=== PATIENT | male | born 1955 | race Caucasian/White ===

== ENCOUNTER 2018-09-16 11:52 | Inpatient (IN) | payer BC ==
[~2018-09-16] VITALS: Ht 175.3 cm; Wt 90.7 kg
--- NOTE | 2018-09-16 12:24 | NUR ---
PREADMISSION Pt 63 y/o male received in intake office. Pt alert and oriented to name,place, and time.[place]. Skin warm and dry to touch. Respirations even and unlabored. Pt is not intoxicated. HM=162/79 P=96 R=16 O2=99%@ra T=98.3. Pt states is here for heroin SQ 2gm /days x 4 months and has been using since the age of [age] years old. States his last use was 2gm on 09/16/18 @0300. Pt denies any sz history. Pt is clear to be admitted onto unit. Explained unit rules to pt with acknowledgement.
[2018-09-16 12:44] VITALS: BP 136/79
--- NOTE | 2018-09-16 13:30 | NUR ---
ADMISSION Patient arrived on the unit at 1242, 63 year old male from [facility], admitted to [facility] with admitting Dx: Opiate Withdrawal. Patient appears disheveled and unkempt, appears older than stated age. Patient has worried and sad facial expression. Noted with flat affect and depressed mood. Patients vital signs: BP: 136/79 HR: 96 R: 16 T: 98.4 Pulse OX: 99% Room air. NKA. Patient arrived on the unit at 1242, body assessment completed. Body search conducted by male MASONRY INSPECTOR completed. Oriented to unit and to room, education regarding call light use was provided. PCP: Dr. Montana in [facility] located on [address] [place] [address]. Patient noted with mild withdrawal symptoms, presenting with: nausea and anxiety. Admitting COW score of: 4. SUBSTANCE USE HISTORY: Heroin, injected subcutaneously 2 grams daily x 2 months, (prior to that reports using about two to three times a week patient unable to recall for how long.) Patient reports began using heroin at the age of [age] years old. Last use: 09/16/2018 at 0300 approximately 0.5grams. Longest period of sobriety: 3 years, from: 5171-5177. Patient reports typical withdrawal symptoms include: " I get pretty sick, nausea, bone and joints pain, restless, stomach cramps, sweats, and a little shaky" Patient also reports a history of alcohol abuse, but has not consumed any alcohol in 13 years. Patient denies any history of seizures, overdose, withdrawal induced delirium/cardiac complications. PAST MEDICAL HISTORY -Hypertension diagnosed in 2016 -Pre diabetes diagnosed in 2017 -Hepatitis C in 2012 and was treated two years ago for it. -Liver Cancer 2016 Patient did not bring any home medications with him, reports taking unknown amount of: Propranolol, Protonix and Lactulose. Dr. Randle was made aware. Will clarify with patient regarding amounts. In regards to past medical history, patient also verbalized, They found a small spot of cancer on my liver, approximately two years ago, the doctor went in, through my groin area, and applied chemotherapy medication to it and removed it. I go every three months for an MRI, 6 months after that procedure they found another small spot of cancer in the liver, and the doctor did the same procedure, but this time during the procedure the doctor discovered that I had a blood clot in one of my arteries he treated that as well, after all those procedures and the recovery from the procedures I began using and abusing heroin Patient denies any history of SI/SA, denies any involuntary psychiatric hospitalizations. TREATMENT HISTORY: 1. "[facility] [place] its been a few years since I was there." 2. "[facility] in [place] x2 a long time a go, maybe six years ago" Patient verbalized, "After detox I plan to return to my prior living arrangements and attend an outpatient treatment program " verbalized his son is his support system, My support system is my son, Bill he is always there anytime I need something MOTIVATION In regards to usage history , reports I dont know why I began using heroin, my friends offered it to me and wanted me to try it, so I did Patient reports he uses now: to deal with the pain I guess, In the beginning it was hard at times to stop using but I was able to, but as time went by it got harder and harder to stop using everyday Patient verbalized, I decided to get sober today, because I am tired of dealing with this lifestyle, its just not working for me anymore Patient states, When I try to stop on my own, its really hard, I get really sick and I end up using to not be sick and thats the hard part, I also get really strong cravings when I use it I crave it, and when I stop I get really sick so its a cycle that does nott stop Patient reports barriers for getting/staying sober include the following: I have a lot of pressure on me from work and home and issues that I need to take care of and get done, a lot of stuff on my plate that its difficult to stop using, because that is how I feel better Reports his support system, is his oldest son. Patient reports consequences from using include: Using drugs has affected my close friendships, and my children because my kids feel like Im not there and they feel neglected by me because of my drug use, its also affected my health especially my liver because in the past I was a heavy drinker Reports he has not drank any alcohol in 13 years. Patient reports he is unhappy with himself because of: I have to go through this because I put myself in this situation by using, I wish I wouldt have started using again, because when I was clean it was a good feeling to be clean and sober Patient plans on: " Im seeking help and I realize that there is issues I have to deal with and I plan on attending counseling to learn how to cope with the issues I have. I plan on taking it one day at a time and do what I have to do" Patient was seen and examined by Dr. Randle. Will continue to monitor. Safety measures are in place. Call light with in reach.
[2018-09-16] MEDS ORDERED: LACTULOSE 20 G/30 ML LIQUID UDC PO PRN (14:30)
[2018-09-16] MEDS ORDERED: MAG HYDROX/AL HYDROX/SIMETH 30 ML LIQUID UDC PO PRN (14:30)
[2018-09-16] MEDS ORDERED: IBUPROFEN 600 MG TABLET PO PRN (14:30)
[2018-09-16] MEDS ORDERED: MAGNESIUM HYDROXIDE 30 ML LIQUID UDC PO PRN (14:30)
[2018-09-16] MEDS ORDERED: LORAZEPAM 1 MG TABLET PO PRN (14:30)
[2018-09-16] MEDS ORDERED: LOPERAMIDE HCL 2 MG CAPSULE PO PRN ×2 (14:30)
--- NOTE | 2018-09-16 15:00 | NUR ---
UDS + CANNABINOIDS Patient verbalized he does not use marijuana, and does not know why his UDS is positive for Marijuana. noticed.
[2018-09-16 15:17] LABS: *AMPHETAMINE, URINE NEGATIVE (NEGATIVE); *BARBITURATE, URINE NEGATIVE (NEGATIVE); *CANNABINOID, URINE POSITIVE (NEGATIVE); *COCCAINE, URINE NEGATIVE (NEGATIVE); *OPIATE, URINE POSITIVE (NEGATIVE); *PHENCYCLIDINE SCREEN,URINE NEGATIVE (NEGATIVE)
[2018-09-16 15:25] LABS: BASOPHILS % (AUTO) 0.8 % (0.0-2.0); EOSINOPHILS # (AUTO) 0.1 K/uL (0.0-0.7); EOSINOPHILS % (AUTO) 3.9 % (0.0-7.0); HEMATOCRIT 33.1 % (36.7-47.1); HEMOGLOBIN 11.1 g/dL (12.5-16.3); LYMPHOCYTES # (AUTO) 0.8 K/uL (20.0-40.0); MEAN CORPUSCULAR HEMOGLOBIN 28.2 uug (23.8-33.4); MEAN CORPUSCULAR HGB CONC 34 g/dL (32.5-36.3); MONOCYTES # (AUTO) 0.3 K/uL (2.0-10.0); MONOCYTES % (AUTO) 11.4 % (0.0-11.0); NEUTROPHILS # (AUTO) 1.4 K/uL (1.8-8.9); NEUTROPHILS % (AUTO) 53.9 % (38.5-71.5); RED BLOOD CELL COUNT(AUTO) 3.94 MIL/uL (4.06-5.63); WHITE BLOOD COUNT (AUTO) 2.7 K/uL (3.6-10.2)
[2018-09-16 15:28] LABS: ETHANOL < 3 MG/DL (0-0)
[2018-09-16 15:31] LABS: ALANINE AMINOTRANSFERASE 23 U/L (16-63); ALKALINE PHOSPHATASE 74 U/L (50-136); ASPARTATE AMINOTRANSFERASE 23 U/L (15-37); BILIRUBIN,TOTAL 0.6 mg/dL (0.2-1.0); CARBON DIOXIDE 26 mmol/L (21-32); CHLORIDE 102 mmol/L (98-107); GLUCOSE 211 mg/dL (74-106); MAGNESIUM 1.5 mg/dL (1.8-2.4); POTASSIUM 4.2 mmol/L (3.5-5.1); TOTAL PROTEIN, SERUM 6.9 g/dL (6.4-8.2); UREA NITROGEN, BLOOD 16 mg/dL (7-18)
[2018-09-16 15:42] LABS: THYROID STIMULATING HORMONE 1.605 mIU/mL (0.358-3.740)
[2018-09-16 15:44] LABS: PLATELET COUNT (AUTO) 37 K/uL (152-348)
[2018-09-16 15:50] LABS: BAND % (MANUAL) 2 % (0-10); EOSINOPHILS % (MANUAL) 3 % (0-8); LYMPHOCYTES % (MANUAL) 28 % (20-40); MONOCYTES % (MANUAL) 10 % (2-10); NEUTROPHILS % (MANUAL) 57 % (42-75)
[2018-09-16] MEDS: NICOTINE 21 MG/24HR PATCH TD SCH (16:34)
[2018-09-16 17:16] VITALS: BP 148/81
[2018-09-16] MEDS ORDERED: MAGNESIUM OXIDE 400 MG TABLET PO ONE (18:15)
--- NOTE | 2018-09-16 19:06 | NUR ---
END OF SHIFT Patient continues under close observation patient completed Valium taper as ordered, and is scheduled to be discharged tomorrow morning. Patient has a worried/anxious facial expression. Noted with depressed/anxious mood, encouraged utilization of non pharmacological interventions. Patient presented with difficulty concentrating, emotional volatility, generalized discomfort, increased emotional amplitude, increase anxiety, and agitation, with last CIWA score of: 8. Patient continues under close observation. Received no PRN medications during shift. Encouraged to attend group therapies/sessions to learn new coping skills to prevent relapse. Denies SI/HI. Safety measures are in place. Call light kept with in reach, will continue to monitor closely. Patient endorsed to night auditor nurse, all pertinent information was discussed. Addendum: 09/16/18 at 1909 by JERRY ROSAS LVN INCORRECT NOTE, DISREGARD, WRONG PATIENT.
--- NOTE | 2018-09-16 19:07 | NUR ---
END OF SHIFT Patient admitted today during shift, with admitting Dx: opiate withdrawal. Patient continues under close observation, last COW score of: 4. Patients magnesium was replaced during shift as ordered. MD aware of patients platelet count results of 37. No s/sx of unusual bleeding were noted, educated regarding all safety precautions with good verbal understanding. Patient is scheduled to begin a 5 day Subutex taper tomorrow morning. Patient endorsed to statistical machine servicer nurse, all pertinent information was discussed.
--- NOTE | 2018-09-16 19:08 | NUR ---
Start of shift note Received report from day shift nurse. Pt is a 63 yo male, A+ox4, presenting to [facility] for medically supervised Opiate withdrawal. Pt noted with fatigue, agitation,and anxiety. Pt has HX of HTN, Hepatitis C, and Liver cancer which will be monitored during shift. Pt is on PRN medications at this time, tolerated well. Respirations even and unlabored. Will continue to monitor.
[2018-09-16 20:10] VITALS: BP 145/80
--- NOTE | 2018-09-16 20:10 | NUR ---
COWS Assessment COWS: 9. Pt noted with pulse 74, chills, restlessness, severe diffuse discomfort, nausea, fine tremors, yawning, and anxiety. Respirations even and unlabored. Will continue to monitor.
[2018-09-16] MEDS: METHOCARBAMOL 750 MG TABLET PO PRN (21:30)
[2018-09-16] MEDS: ONDANSETRON ODT 4 MG TAB.RAPDIS SL PRN (22:59)
--- NOTE | 2018-09-16 22:59 | NUR ---
PRN Zofran Pt c/o nausea and requested for PRN Zofran. Medication given and tolerated well. Will reassess within 1 HR. Will continue to monitor.
--- NOTE | 2018-09-16 23:50 | NUR ---
PRN Zofran Reassessment Medication ineffective. Pt states "give me a little more time and maybe i might feel better". No s/s of ASE noted at this time. Respirations even and unlabored. Will continue to monitor.
[2018-09-17] VITALS (8 sets, daily range): BP systolic 131–184; BP diastolic 68–95
--- NOTE | 2018-09-17 00:50 | NUR ---
COWS Assessment COWS: 13. Pt noted with pulse 95, restlessness, chills, severe diffuse discomfort, n/v, fine tremors, yawning, and anxiety. Respirations even and unlabored. Will continue to monitor.
[2018-09-17] MEDS: ONDANSETRON 4 MG/2 ML VIAL IM PRN ×4 (00:53→23:44)
--- NOTE | 2018-09-17 00:53 | NUR ---
PRN Zofran IM PT continues with n/v. PRN Zofran IM given and tolerated well. Will reassess within 1 HR. Will continue to monitor.
--- NOTE | 2018-09-17 01:52 | NUR ---
PRN Zofran IM Reassessment Medication ineffective. Pt continues with n/v. No s/s of ASE noted at this time. Respirations even and unlabored. Will continue to monitor.
[2018-09-17] MEDS: BUPRENORPHINE HCL 2 MG TAB.SUBL SL PRN ×2 (02:13→06:45)
--- NOTE | 2018-09-17 02:13 | NUR ---
COWS Assessment and PRN Subutex COWS: 14. Pt noted with pulse 92, chills, restlessness, severe diffuse discomfort, n/v, fine tremors, yawning, and anxiety. PRN Subutex given and tolerated well. Will reassess within 1 HR. Will continue to monitor.
--- NOTE | 2018-09-17 03:10 | NUR ---
COWS Assessment and PRN Reassessment COWS: 10. Pt noted with pulse 89, restlessness, sever diffuse discomfort, chills, n/v, fine tremors, anxiety, and yawning. PRN Subutex effective. No s/s of ASE noted at this time. Respirations even and unlabored. Will continue to monitor.
--- NOTE | 2018-09-17 06:45 | NUR ---
COWS Assessment and PRN Subutex COWS: 14. Pt noted with pulse 91, runny nose, chills sweat , restlessness, sever diffuse discomfort, fine tremors, yawning, and anxiety. PRN Subutex given and tolerated well. Respirations even and unlabored. Will continue to monitor.
--- NOTE | 2018-09-17 07:00 | NUR ---
End of shift note Pt was continuously noted with n/v, anxiety, agitation, and restlessness. Pt remained in room for entire shift. Pt remained cooperative and compliant with all aspects of treatment. Pt was given PRN Zofran @2259, PRN Zofran IM @0053, PRN Subutex @0213 and @0640. Pt is to start 5 day Subutex taper today. Pt slept for a total of 5 HRS. Last COWS: 14 @0640. Respirations even and unlabored. Will endorse to day shift nurse.
--- NOTE | 2018-09-17 07:22 | NUR ---
BEGINNING OF SHIFT Patient endorsement report received from overnight associate nurse, all pertinent information was discussed, patient admitted yesterday during day shift, with admitting dx: opiate withdrawal. Patient is scheduled to begin a 5 day subutex taper this morning. As per overnight associate patient received PRN: Subutex 4mg x2, zofran PO x1, and zofran Im x1. Subutex administered at 0640, effective, Decrease in anxiety/irritability, current COW score of: 13 at 0715. patient received in bed awake, alert and oriented x4, educated regarding plan of care for the day and medication regimen with good verbal understanding. Per overnight associate patient with last COW score of: 14, and slept for 5 hours. Will continue to monitor closely, safety measures are in place.
--- NOTE | 2018-09-17 08:45 | NUR ---
PRN ZOFRAN Patient noted vomiting x2, and very nauseous, noted dry heaving, provided with non pharmacological interventions with no relief, administered Zofran IM inj as ordered, will monitor effectiveness of medication.
[2018-09-17] MEDS: METHOCARBAMOL 750 MG TABLET PO PRN ×2 (08:53→20:43)
[2018-09-17] MEDS: HYDROXYZINE PAMOATE 25 MG CAPSULE PO PRN ×2 (08:53→20:43)
[2018-09-17] MEDS: NICOTINE 21 MG/24HR PATCH TD SCH (08:53)
[2018-09-17] MEDS: BUPRENORPHINE HCL 2 MG TAB.SUBL SL SCH ×4 (08:53→20:43)
[2018-09-17] MEDS: DICYCLOMINE HCL 20 MG TABLET PO PRN (08:53)
--- NOTE | 2018-09-17 08:53 | NUR ---
PRN BENTYL/ROBAXIN/VISTARIL; COW ASSESSMENT Patient in bed awake alert and oriented x4, presenting with the following s/sx of withrawal: flushed face, clammy skin, difficulty sitting still, enlarged pupils, arthalgias, myaliga, watery eyes, nasal congestion, dry heaving, nausea, muscle spams, vomiting, tremors that can be felt, anxiety, agitation, gooseflesh,abdominal cramps, emotional volatility, and generalized discomfort with current COW score of: 21. Patient administered Bentyl for abdominal cramps, Robaxin for muscle spams/myalgia, and Vistaril for increase anxiety/agitation all as ordered, will monitor effectiveness of medication. Patient also began first dose of Subutex taper this morning, will continue to monitor, continues under close observation.
[2018-09-17] MEDS ORDERED: 5 DAY TAPER BUPRENORPHINE -SERENITY PROTOCOL SL PRN (09:00)
[2018-09-17] MEDS ORDERED: TUBERCULIN,PURIF.PROT.DERIV. 5 TU/0.1 ML TEST ID ONE (09:00)
--- NOTE | 2018-09-17 09:15 | NUR ---
TENA REASSESSMENT Medication effective, patient verbalized " i feel better and less nauseous, will continue to monitor"
[2018-09-17 09:46] LABS: EOSINOPHILS % (AUTO) 0.1 % (0.0-7.0); HEMOGLOBIN 12.8 g/dL (12.5-16.3); LYMPHOCYTES # (AUTO) 0.4 K/uL (20.0-40.0); MONOCYTES # (AUTO) 0.1 K/uL (2.0-10.0); MONOCYTES % (AUTO) 2.7 % (0.0-11.0)
[2018-09-17 09:48] LABS: BASOPHILS % (AUTO) 0.4 % (0.0-2.0); LYMPHOCYTES % (AUTO) 8.7 % (20.5-51.5); MEAN CORPUSCULAR HEMOGLOBIN 27.7 uug (23.8-33.4); MEAN CORPUSCULAR HGB CONC 34 g/dL (32.5-36.3); MEAN CORPUSCULAR VOLUME 81.9 fL (73.0-96.2); NEUTROPHILS # (AUTO) 4.2 K/uL (1.8-8.9); NEUTROPHILS % (AUTO) 88.1 % (38.5-71.5); RED BLOOD CELL COUNT(AUTO) 4.64 MIL/uL (4.06-5.63); WHITE BLOOD COUNT (AUTO) 4.8 K/uL (3.6-10.2)
--- NOTE | 2018-09-17 09:53 | NUR ---
BENTYL/ROBAXIN/VISTARIL REASSESSMENT Patient reports decrease in abdominal cramps, reports feeling less anxious, and decrease in myalgia, current pain level 4/10, all medications were effective, will continue to monitor.
[2018-09-17 10:00] LABS: BILIRUBIN,TOTAL 1.3 mg/dL (0.2-1.0); CREATININE 0.9 mg/dL (0.6-1.3); MAGNESIUM 1.5 mg/dL (1.8-2.4); TOTAL PROTEIN, SERUM 7.9 g/dL (6.4-8.2)
[2018-09-17 10:25] LABS: PLATELET COUNT (AUTO) 46 K/uL (152-348)
--- NOTE | 2018-09-17 10:27 | NUR ---
JOAQUIN Wheeler from lab called plt=46. aware.
[2018-09-17] MEDS: CLONIDINE HCL 0.1 MG TABLET PO PRN ×2 (10:45→16:52)
--- NOTE | 2018-09-17 10:45 | NUR ---
PRN CLONIDINE bp: 184/95 hr: 72. Patient denies chest pain/dizziness. Administered Clonidine as ordered for elevated blood pressure, will monitor effectiveness.
[2018-09-17 11:04] LABS: LYMPHOCYTES % (MANUAL) 9 % (20-40); MONOCYTES % (MANUAL) 1 % (2-10); NEUTROPHILS % (MANUAL) 90 % (42-75)
--- NOTE | 2018-09-17 11:45 | NUR ---
CLONIDINE REASSESSMENT Medication effective, decrease in BP, BP: 155/89 HR: 71, will continue to monitor.
[2018-09-17 12:11] LABS: HEPATITIS B SURFACE AG Negative (Negative)
--- NOTE | 2018-09-17 12:15 | NUR ---
COW ASSESSMENT Patient continues to exhibit the the following s/sx of withdrawal: flushed face, clammy skin, difficulty sitting still, enlarged pupils, arthralgias, myalgia, watery eyes, nasal congestion, dry heaving, nausea, muscle spams, vomiting, tremors that can be felt, anxiety, agitation, gooseflesh,abdominal cramps, emotional volatility, and generalized discomfort with current COW score of: 21. continues on subutex taper as ordered.
--- NOTE | 2018-09-17 16:52 | NUR ---
PRN ZOFRAN Patient noted with increase nausea, and dry heaving, provided with non pharmacological interventions with no relief, administered Zofran IM inj as ordered, will monitor effectiveness of medication.
--- NOTE | 2018-09-17 17:00 | NUR ---
COW ASSESSMENT Noted presenting with: flushed face, clammy skin, difficulty sitting still, enlarged pupils, arthralgias, myalgia, watery eyes, nasal congestion, dry heaving, nausea, muscle spams, vomiting, tremors that can be felt, anxiety, agitation, gooseflesh,abdominal cramps, emotional volatility, and generalized discomfort with current COW score of: 19.
--- NOTE | 2018-09-17 17:22 | NUR ---
ZOFRAN REASSESSMENT Medication effective,reports decrease in nausea will continue to monitor
--- NOTE | 2018-09-17 17:52 | NUR ---
CLONIDINE REASSESSMENT Medication effective, decrease in BP, BP: 152/79 HR: 74, will continue to monitor.
--- NOTE | 2018-09-17 18:56 | NUR ---
END OF SHIFT Patient alert and oriented x4, continues under close observation. Patient was started on a 5 day Subutex taper as ordered, patient noted withdrawn and guarded, has depressed/agitated facial expression, noted easily overwhelmed and easily agitated, provided with calming reassurance as need. Has avoidant eye contact with flat affect along with agitated/anxious mood. Patient was noted exhibiting the following s/sx of withdrawal: flushed face, clammy skin, difficulty sitting still, enlarged pupils, arthralgias, myalgia, watery eyes, nasal congestion, dry heaving, nausea, muscle spams, vomiting, tremors that can be felt, anxiety, agitation, gooseflesh,abdominal cramps, emotional volatility, and generalized discomfort with last COW score of:19. Patient received PRN: Zofran IM x2, Bentyl, Robaxin, Vistaril, Clonidine x2. Medications were effective. Patient was seen and examined by Dr. Jer MD is aware of patients current labs. Patient was also seen by psychiatrist during shift. Patient with poor appetite during meal times, encouraged adequate meal/PO fluid intake as tolerated. Encouraged patient utilization of non pharmacological interventions. Safety measures in place, patient endorsed to shift supervisor nurse, all pertinent information was discussed
--- NOTE | 2018-09-17 20:00 | NUR ---
Start of Shift Patient on bed, appearing weak and melancholic, noted to have dry heaves intermittently. Patient avoids conversation, eye contact and stated that he feels down because he feels intermittent nausea. Patient also appears disheveled and unkempt. Encouraged patient to increase oral fluid intake as tolerated. Fall, universal, seizure and safety prec in place. Call light within reach. Latest COWS=16. Will continue to monitor.
[2018-09-17] MEDS ORDERED: MAGNESIUM OXIDE 400 MG TABLET PO ONE (20:30)
--- NOTE | 2018-09-17 20:43 | NUR ---
PRN Robaxin and Vistaril Patient c/o generalized muscle aches=7/10 and increasing anxiety. Administered Robaxin 750 mg PO PRN and Vistaril 50 mg PO PRN. Will reassess.
--- NOTE | 2018-09-17 21:45 | NUR ---
Karime and Lauren reassess Patient verbalized that generalized pain level=3/10. Patient also noted to be less anxious and is calmer.
--- NOTE | 2018-09-17 23:45 | NUR ---
PRN Zofran IM Patient c/o nausea, no vomiting. Patient requested for Zofran IM, administered 4 mg. Will reassess.
[2018-09-18] VITALS (9 sets, daily range): BP systolic 126–174; BP diastolic 78–93
--- NOTE | 2018-09-18 | NUR ---
CIWA=17 Patient continues to have intermittent nausea, has piloerection, anxiety and generalized muscle pain=01/08. Patient continues to be melancholic and does not engage in conversation. Addendum: 09/18/18 at 0047 by ALTON JOHNS RN Correction: COWS=17
--- NOTE | 2018-09-18 00:15 | NUR ---
Kimberly reassess Patient verbalized relief from nausea.
[2018-09-18] MEDS: CLONIDINE HCL 0.1 MG TABLET PO PRN ×3 (00:38→15:51)
--- NOTE | 2018-09-18 00:38 | NUR ---
PRN Clonidine Patient noted to be anxious, NH=986/93. Administered Clonidine 0.1 mg PO PRN. Will reassess.
[2018-09-18] MEDS ORDERED: diphenhydrAMINE 50 MG CAPSULE PO ONE (00:45)
--- NOTE | 2018-09-18 01:20 | NUR ---
One-time Benadryl Patient verbalized inability to sleep. Contacted MD and he ordered one-time Benadryl 50 mg PO. Administered and will reassess.
--- NOTE | 2018-09-18 01:38 | NUR ---
Clonidine reassess Patient verbalized relief from anxiety. WQ=955/83, pulse=65.
--- NOTE | 2018-09-18 02:20 | NUR ---
Forrestadryl reassess Patient asleep on bed, no SOB nor facial grimacing noted.
--- NOTE | 2018-09-18 04:00 | NUR ---
COWS=13 Patient continues to be easily agitated, is in depressed mood and disheveled. Patient also continues to c/o intermittent nausea.
--- NOTE | 2018-09-18 07:12 | NUR ---
End of Shift Patient continues to have hypoactive body movements and is easily irritable, noted to have dry heaves intermittently. Patient has intermittent nausea, anxiety and observed to be in depressed mood. Patient avoids eye contact and continues to appear disheveled and unkempt. Fall, universal, seizure and safety prec in place. Call light within reach. Latest COWS=13, slept for 7 hours. Endorsed to AM shift nurse for continuity of care.
--- NOTE | 2018-09-18 07:45 | NUR ---
Start of shift note; Received report from night nurse. Patient is a 63 year old male admitted on 09/16/18 for Opiate withdrawal. Patient was placed on 5 day Subutex taper, tolerating well. Patient slept for 7 hours. Patient received PRN Clonidine noted to be effective. Patient is currently asleep, respirations of 18 noted. All safety measures secured. Will continue to monitor patient.
--- NOTE | 2018-09-18 08:00 | NUR ---
COWS Assessment; Patient is AOX4, patient is complaining of anxiety, nausea, offered Zofran patient refused to take Zofran at this time. Patient reported intermittent sweats, muscle aches, fatigue, stuffy nose, chills, tremors, difficulty concentrating. Patient's current COWS score is 10. All safety measures secured. Will closely monitor patient.
[2018-09-18] MEDS: BUPRENORPHINE HCL 2 MG TAB.SUBL SL SCH ×3 (08:40→21:07)
[2018-09-18] MEDS: NICOTINE 21 MG/24HR PATCH TD SCH (08:40)
--- NOTE | 2018-09-18 08:40 | NUR ---
PRN medication; Patient's BP is elevated 174/91, HR of 71. PRN Clonidine 0.1 mg PO for elevated BP. Will continue to monitor patient for effectiveness of medication.
--- NOTE | 2018-09-18 09:40 | NUR ---
Re-assessment; Re-checked patient's BP, Patient's BP is 126/81, HR of 88. PRN medication noted to be effective.
--- NOTE | 2018-09-18 12:00 | NUR ---
COWS Assessment; Patient is AOX4, patient is complaining of anxiety, nausea, Patient reported intermittent sweats, muscle aches, fatigue, stuffy nose, chills, tremors, difficulty concentrating. Patient's current COWS score is 14. All safety measures secured. Will closely monitor patient.
[2018-09-18 13:05] LABS: CREATININE 0.8 mg/dL (0.6-1.3); MAGNESIUM 1.9 mg/dL (1.8-2.4); POTASSIUM 3.9 mmol/L (3.5-5.1)
--- NOTE | 2018-09-18 15:51 | NUR ---
PRN medication; Patient's BP is currently elevated 172/90 , HR of 92. PRN medication Clonidine 0.1mg PO given for elevated BP. Will continue to monitor patient.
--- NOTE | 2018-09-18 16:51 | NUR ---
Re-assessment; Patient's BP is 132/88, HR of 88. PRN Clonidine noted to be effective.
--- NOTE | 2018-09-18 18:06 | NUR ---
End of shift note; Patient is AOX4, Patient remained compliant with treatment plan and medication regime. Patient continues to be on Subutex taper, tolerating procedure well. Patient's last COWS score is 14 at 1600, manifested by anxiety, agitation, intermittent sweats, muscle aches, chills, nausea, stomach cramps, headache. All safety measures secured. Met all needs.
--- NOTE | 2018-09-18 19:30 | NUR ---
START OF SHIFT Pt is a 63 y/o male admitted on 09/16/18 for opiate withdrawal. Pt is on a 5 day Subutex taper, tolerating well. PRN Clonidine x 2 administered for elevated BP, which were effective and last COWS 14. Upon assessment pt presents with anxiety, difficulty staying asleep, lethargy, poor concentration, poor appetite, nausea, agitation, enlarged pupils, elevated HR, stomach cramps, disheveled appearance, unkempt room, and reports feeling weak. Medications due. Safety measures in place. Call light within reach. Will continue to monitor.
--- NOTE | 2018-09-18 20:00 | NUR ---
COWS 12 Pt presents with anxiety, difficulty staying asleep, lethargy, poor concentration, poor appetite, nausea, agitation, enlarged pupils, elevated HR, stomach cramps, disheveled appearance, unkempt room, and reports feeling weak.
[2018-09-18] MEDS: DICYCLOMINE HCL 20 MG TABLET PO PRN (20:42)
[2018-09-18] MEDS: ONDANSETRON ODT 4 MG TAB.RAPDIS SL PRN (20:42)
--- NOTE | 2018-09-18 20:42 | NUR ---
PRN BENTYL AND ZOFRAN ODT ADMINISTRATION Pt reports nausea without vomiting and stomach cramps. Safety measures in place. Call light within reach. Will continue to monitor.
--- NOTE | 2018-09-18 21:12 | NUR ---
ALEKSANDR MADSEN ODT REASSESSMENT Pt reports that the nausea has almost gone away completely, able to eat some cereal and drink water. Safety measures in place. Call light within reach. Will continue to monitor.
--- NOTE | 2018-09-18 21:42 | NUR ---
PRN LUCYYL REASSESSMENT Pt reports stomach cramps improved to tolerable level. Safety measures in place. Call light within reach. Will continue to monitor.
[2018-09-18] MEDS ORDERED: TRAZODONE 100 MG TABLET PO ONE (21:45)
[2018-09-18] MEDS: METHOCARBAMOL 750 MG TABLET PO PRN (22:35)
[2018-09-18] MEDS: HYDROXYZINE PAMOATE 25 MG CAPSULE PO PRN (22:35)
--- NOTE | 2018-09-18 22:35 | NUR ---
PRN VISTARIL AND ROBAXIN ADMINISTRATION Pt reports anxiety and muscle aches. Safety measures in place. Call light within reach. Will continue to monitor.
--- NOTE | 2018-09-18 23:35 | NUR ---
PRN VISTARIL AND ROBAXIN REASSESSMENT Pt laying in bed with eyes closed, medications noted effective. Respirations even and unlabored. Safety measures in place. Call light within reach. Will continue to monitor.
--- NOTE | 2018-09-19 | NUR ---
COWS DEFERRED AND VITALS REFUSED Pt laying in bed with eyes closed, COWS deferred, to be assessed when pt is awake per orders. Vitals refused. Respirations even and unlabored. Safety measures in place. Call light within reach. Will continue to monitor.
--- NOTE | 2018-09-19 02:37 | NUR ---
PRN LACTULOSE ADMINISTRATION Pt reports constipation and abdominal pain, requests Lactulose. Safety measures in place. Call light within reach. Will continue to monitor.
--- NOTE | 2018-09-19 03:37 | NUR ---
PRN LACTULOSE REASSESSMENT Pt laying in bed with eyes closed, will continue to monitor for BM. Safety measures in place. Call light within reach. Will continue to monitor.
--- NOTE | 2018-09-19 07:08 | NUR ---
END OF SHIFT Pt is a 63 y/o male admitted on 09/16/18 for opiate withdrawal. Pt is on a 5 day Subutex taper, tolerating well. Pt presented with anxiety, difficulty staying asleep, lethargy, poor concentration, poor appetite, nausea, agitation, enlarged pupils, elevated HR, stomach cramps, abdominal pain, bloating, constipation, disheveled appearance, unkempt room, and reported feeling weak. Pt reports that he felt his abdominal pain was related to not asking for his lactulose PRN medication earlier. Scheduled medications and PRN Bentyl, Zofran odt, Vistaril, Robaxin and Lactulose administered, effective in S/S of withdrawal as verbalized by pt. Pt slept 8 hours. Intake 1750 ml, void x 1, stool x 0. Safety measures in place. Call light within reach. Endorsed to day shift nurse.
--- NOTE | 2018-09-19 07:39 | NUR ---
START OF SHIFT Pt is a 63 yr old male, admitted on 09/16/18 for Opiate withdrawal and is on 5 day Subutex taper as ordered. Received report from slot shift supervisor nurse. Pt received Bentyl PRN, Zofran PRN, Vistaril PRN, Robaxin PRN and Lactulose PRN during the night. Medication was effective. Pt slept for 8 hrs. Last COWS score was 12. pt remains in bed sleeping with respirations even and unlabored. Pt's room is noted disheveled with multiple open food wrappers at bedside table and dirty clothes on the floor. Safety precautions observed. Call light is within reach. Will continue to monitor.
[2018-09-19 08:00] VITALS: BP 154/88
[2018-09-19] MEDS ORDERED: BUPRENORPHINE HCL 2 MG TAB.SUBL SL SCH ×2 (09:00→15:00)
[2018-09-19] MEDS: NICOTINE 21 MG/24HR PATCH TD SCH (09:17)
--- NOTE | 2018-09-19 10:17 | NUR ---
Therapist prompted client to attend group therapy.
--- NOTE | 2018-09-19 10:22 | NUR ---
Communication Dr. Randle made aware of HgbA1c 7.7 Diet order changed from regular diet to diabetic. Pt was provided with education regarding diabetes and diabetic diet.
[2018-09-19 12:00] VITALS: BP 165/84
[2018-09-19] MEDS: CLONIDINE HCL 0.1 MG TABLET PO PRN (12:06)
--- NOTE | 2018-09-19 12:06 | NUR ---
COWS ASSESSMENT/PRN GIVEN Pt was stating he is not experiencing any withdrawal symptoms at this time. Pt is denying any pain. Pt is noted with flat affect. Pt states,"I have to leave today. I have an MRI tomorrow morning and I need to be able to go to the appointment. " Pt states there is a growth in his liver and is scared. Pt's BP was noted 165/84. Clonidine 0.1mg PO PRN was given as ordered, Encouraged increase fluid intake. COWS score is 3. Will continue to f/u with .
[2018-09-19 13:06] VITALS: BP 149/85
--- NOTE | 2018-09-19 13:06 | NUR ---
PRN RE-ASSESSMENT Clonidine PRN was effective. Pt's BP is 149/85. Encouraged increase fluid intake. Will continue to monitor.
[2018-09-19] MEDS ORDERED: CLON0.1T14 PO (14:22)
[2018-09-19] MEDS ORDERED: LACT10SO7 PO (14:26)
--- NOTE | 2018-09-19 15:21 | NUR ---
PRN GIVEN Pt was c/o upset stomach and requested for Mylanta. Mylanta 30ml PO PRN was given as ordered. Encouraged increase fluid intake. Will continue to monitor.
--- NOTE | 2018-09-19 17:04 | NUR ---
DISCHARGE NOTE Pt is a 63 yr old male, AA&Ox4. Pt was admitted on 09/16/18 for Opiate withdrawal and was on a 5 day Subutex taper as ordered. Subutex taper was discontinued. Pt was observed with anxiety on wanting to go home due to a scheduled MRI tomorrow on 09/20/18. Pt was medically cleared by . Pt was educated on discharge summary and prescriptions. Pt was able to verbalize understanding. Pt was discharged off the unit at 1702 in stable condition. Pt is discharged home. Pt left with all belongings and valuable. No home medication was brought.
[2018-09-20] MEDS ORDERED: BUPRENORPHINE HCL 2 MG TAB.SUBL SL SCH (09:00)
[2018-09-21] MEDS ORDERED: BUPRENORPHINE HCL 2 MG TAB.SUBL SL SCH (09:00)
== END 2018-09-19 18:10 | disposition home or self-care (01) | DRG 895 ==
LOC: SRC 11:52
PROVIDERS: ADMIT Family Medicine Addiction Medicine; ATTEND Family Medicine Addiction Medicine
PROC: HZ2ZZZZ Detoxification Services for Substance Abuse Treatment (ICD-10-PCS; principal; 2018-09-16)
PROC: HZ31ZZZ Individual Counseling for Substance Abuse Treatment, Behavioral (ICD-10-PCS; 2018-09-19)
DX: F11.23 Opioid dependence with withdrawal (principal); F17.210 Nicotine dependence, cigarettes, uncomplicated; E11.65 Type 2 diabetes mellitus with hyperglycemia; E83.42 Hypomagnesemia; Z83.3 Family history of diabetes mellitus; Z92.21 Personal history of antineoplastic chemotherapy; F10.11 Alcohol abuse, in remission; Y90.9 Presence of alcohol in blood, level not specified; Z85.05 Personal history of malignant neoplasm of liver; Z86.19 Personal history of other infectious and parasitic diseases; D69.6 Thrombocytopenia, unspecified; K74.60 Unspecified cirrhosis of liver; I10 Essential (primary) hypertension
CPT/HCPCS: 36415; 80307; 80349; 80361; 83735; 84443; 85025; 85610; 86580; 86592; 86705; 86803; 87340; 87806; A4663; G0480; J2405; Q0162; Q0163